=== PATIENT | male | born 1990 | race Hispanic/Latino ===

== ENCOUNTER 2017-12-22 06:31 | Emergency (ER) | payer OTHER ==
[2017-12-22] MEDS ORDERED: TETANUS/DIPHTHERIA TOXOID [ADULT] 0.5 ML VIAL IM ONE ×2 (06:45→17:38)
[2017-12-22] MEDS ORDERED: OCTYL 2-CYANOACRYLATE 1 EACH TP ONE (07:44)
[2017-12-22] MEDS ORDERED: LIDOCAINE HCL 1% 20 ML VIAL ONE (07:52)
[2017-12-22] MEDS ORDERED: LIDOCAINE 1%-EPI 1:100,000 20 ML VIAL IJ ONE (17:38)
== END 2017-12-22 08:18 | disposition home or self-care (01) ==
LOC: EDH 06:31
DX: S61.412A Laceration without foreign body of left hand, initial encounter (principal); X58.XXXA Exposure to other specified factors, initial encounter; Y93.89 Activity, other specified; Y92.89 Other specified places as the place of occurrence of the external cause; Y99.8 Other external cause status
CPT/HCPCS: 12042; 90471; 90714; 99284; J3490